=== PATIENT | female | born 1950 | race Caucasian/White ===

== ENCOUNTER 2022-04-20 22:57 | Emergency (ER) | payer MEDICARE, OTHER ==
[~2022-04-20] VITALS: Ht 157.5 cm; Wt 68.0 kg
[~2022-04-20 22:57] MED LIST: AMLO-213 PO; PANT40TA2 PO
--- NOTE | 2022-04-20 23:05 | NUR ---
MARK C/O HIGH BP AND CHRISTENSEN. TOLERATING R/A AT 98% WITH NO RESP DISTRESS. AMBULATORY WITH STEADY GAIT. CONNECTED PT TO POX AND MONITOR. SAFETY MEASURES IN PLACE.
--- NOTE | 2022-04-20 23:43 | NUR ---
RAC #20G S/L BLOOD COLLECTED AND SENT TO LAB
[2022-04-20 23:56] LABS: BASOPHILS % (AUTO) 0.6 % (0.0-2.0); EOSINOPHILS % (AUTO) 3.2 % (0.0-6.0); HEMATOCRIT 39 % (33-45); HEMOGLOBIN 12.9 g/dL (11.5-14.8); LYMPHOCYTES # (AUTO) 2.4 K/uL (0.8-4.8); LYMPHOCYTES % (AUTO) 31.1 % (20.0-44.0); MEAN CORPUSCULAR HGB CONC 33 g/dl (31.0-36.0); MEAN CORPUSCULAR VOLUME 81 fL (82-100); MONOCYTES # (AUTO) 0.5 K/uL (0.1-1.30); NEUTROPHILS # (AUTO) 4.5 K/uL (1.8-8.9); NEUTROPHILS % (AUTO) 59.1 % (43.0-81.0); PLATELET COUNT (AUTO) 256 K/uL (150-450); RED BLOOD CELL COUNT(AUTO) 4.85 MIL/uL (4.0-5.2); WHITE BLOOD COUNT (AUTO) 7.6 K/uL (4.3-11.0)
[2022-04-21 00:05] LABS: CALCIUM, SERUM 9.7 mg/dL (8.5-10.1); CARBON DIOXIDE 32 mmol/L (21-32); CHLORIDE 99 mmol/L (98-107); CREATININE 0.8 mg/dL (0.6-1.3); GLUCOSE 135 mg/dL (74-106); SODIUM SERUM 135 mmol/L (136-145); UREA NITROGEN, BLOOD 16 mg/dL (7-18)
--- NOTE | 2022-04-21 00:16 | NUR ---
INSTALLER METAL FLOORING AT PT'S BEDSIDE; PT REFUSED XRAY. DR. EARNEST SKAGGS AWARE.
--- NOTE | 2022-04-21 00:39 | NUR ---
PREASSEMBLER PRINTED CIRCUIT BOARD AT PT'S BEDSIDE
[2022-04-21 02:19] VITALS: BP 178/80
--- NOTE | 2022-04-21 02:19 | NUR ---
Patient discharged to home in stable condition. Written and verbal after care instructions given. Patient verbalizes understanding of instruction. IV removed. Catheter intact and site benign. Pressure and 4x4 applied to site. No bleeding noted. pt ambulatory with a steady gait
== END 2022-04-21 02:20 | disposition home or self-care (01) ==
LOC: ER 23:03
DX: I10 Essential (primary) hypertension (principal); R06.00 Dyspnea, unspecified; Z85.3 Personal history of malignant neoplasm of breast; Z79.899 Other long term (current) drug therapy
CPT/HCPCS: 36415; 71045-TC; 80048-TC; 84484-TC; 85025-TC

== ENCOUNTER 2023-05-21 18:17 | Emergency (ER) | payer MEDICARE, OTHER ==
[~2023-05-21] VITALS: Ht 157.5 cm; Wt 65.8 kg
[2023-05-21] MEDS ORDERED: MORPHINE SULFATE INJ 2 MG/ML DISP.SYRIN IM ONE (18:30)
[2023-05-21] MEDS ORDERED: CYCLOBENZAPRINE 10 MG TABLET PO ONE (18:30)
[2023-05-21] MEDS ORDERED: CYCLOBENZAPRINE 10 MG TABLET ONE (18:36)
[2023-05-21] MEDS ORDERED: MORPHINE SULFATE INJ 4 MG/ML DISP.SYRIN ONE (18:36)
[2023-05-21] MEDS ORDERED: KETOROLAC TROMETHAMINE INJ 30 MG/ML VIAL ONE (19:56)
[2023-05-21] MEDS ORDERED: KETOROLAC TROMETHAMINE INJ 60 MG/2 ML VIAL IM ONE (20:00)
[2023-05-21] MEDS ORDERED: LIDO30AD10 TP (21:58)
[2023-05-21] MEDS ORDERED: IBUP-1953 PO (21:58)
[2023-05-21] MEDS ORDERED: CYCL5TAB PO (21:58)
[2023-05-21 22:10] VITALS: BP 136/80; TEMP 98; O2SAT 100
== END 2023-05-21 22:11 | disposition home or self-care (01) ==
LOC: ER 18:17
DX: S33.5XXA Sprain of ligaments of lumbar spine, initial encounter (principal); I10 Essential (primary) hypertension; Z79.899 Other long term (current) drug therapy; X58.XXXA Exposure to other specified factors, initial encounter; Y93.89 Activity, other specified; Y92.89 Other specified places as the place of occurrence of the external cause; Y99.8 Other external cause status
CPT/HCPCS: 99285; 72131; 96372 ×2; J2270; J1885